=== PATIENT | female | born 1955 | race Caucasian/White ===

== ENCOUNTER → 2017-05-04 | Outpatient (CLI) | payer BC ==
--- NOTE | 2017-05-08 11:06 | MM ---
Reason for exam: screening (asymptomatic). Last mammogram was performed 1 year ago. History: Patient is postmenopausal. Benign stereotactic core biopsy of the left breast, June 28, 2000. Core biopsy of the left breast. Took hormonal contraceptives for 5 years beginning at age 20. Took estrogen for 1 month beginning at age 47. Took progesterone for 1 month beginning at age 47. Physical Findings: A clinical breast exam by your physician is recommended on an annual basis and results should be correlated with mammographic findings. MG 3D Screening Mammo W/Cad Bilateral CC and MLO view(s) were taken. Prior study comparison: May 03, 2016, bilateral MG 3d screening mammo w/cad. March 30, 2015, bilateral MG screening mammo w CAD. March 18, 2014, bilateral MG screening mammo w CAD. The breast tissue is extremely dense which could obscure a lesion on mammography. Finding: There is a 9 mm obscured round mass in the upper outer middle quadrant, posterior position of the left breast. New finding since May 03, 2016, March 30, 2015, and March 18, 2014. ASSESSMENT: Incomplete: need additional imaging evaluation, BI-RAD 0 RECOMMENDATION: Special view mammogram and ultrasound of the left breast. [facility] will attempt to contact patient to return for supplemental views and ultrasound.
== END ==
LOC: RADMAMWWP 10:07
PROVIDERS: ATTEND Obstetrics & Gynecology
DX: Z12.31 Encounter for screening mammogram for malignant neoplasm of breast (principal)
CPT/HCPCS: 77063; G0202

== ENCOUNTER → 2017-05-16 | Outpatient (CLI) | payer BC ==
--- NOTE | 2017-05-16 14:53 | MM ---
Reason for exam: additional evaluation requested from abnormal screening. Last mammogram was performed less than 1 month ago. History: Patient is postmenopausal and history of other cancer. Benign stereotactic core biopsy of the left breast, June 28, 2000. Core biopsy of the left breast. Took hormonal contraceptives for 5 years beginning at age 20. Took estrogen for 1 month beginning at age 47. Took progesterone for 1 month beginning at age 47. Physical Findings: Nurse did not find any significant physical abnormalities on exam. MG 3D Work Up W/Cad LT CC and MLO view(s) were taken of the left breast. Prior study comparison: May 04, 2017, bilateral MG 3d screening mammo w/cad. May 03, 2016, bilateral MG 3d screening mammo w/cad. The breast tissue is heterogeneously dense. This may lower the sensitivity of mammography. The previously seen focal asymmetry appears as fibroglandular tissue, however, precautionary ultrasound was performed. These results were verbally communicated with the patient and result sheet given to the patient on 05/16/17. ASSESSMENT: Incomplete: need additional imaging evaluation, BI-RAD 0 RECOMMENDATION: Ultrasound of the left breast. (upper inner and upper outer quadrant)
--- NOTE | 2017-05-16 14:55 | USB ---
Reason for exam: additional evaluation requested from abnormal screening. History: Patient is postmenopausal and history of other cancer. Benign stereotactic core biopsy of the left breast, June 28, 2000. Core biopsy of the left breast. Took hormonal contraceptives for 5 years beginning at age 20. Took estrogen for 1 month beginning at age 47. Took progesterone for 1 month beginning at age 47. US Breast Workup Limited LT Left breast ultrasound demonstrates no cystic or solid lesion seen. Dense breast tissue corresponds to the mammographic focal asymmetry. These results were verbally communicated with the patient and result sheet given to the patient on 05/16/17. ASSESSMENT: Probably benign, BI-RAD 3 RECOMMENDATION: Follow-up diagnostic mammogram of the left breast in 6 months.
== END | disposition home or self-care (01) ==
LOC: RADMAMWWP 13:29
PROVIDERS: ATTEND Obstetrics & Gynecology
DX: R92.8 Other abnormal and inconclusive findings on diagnostic imaging of breast (principal)
CPT/HCPCS: 76642; G0206; G0279

== ENCOUNTER → 2017-06-29 | Outpatient (CLI) | payer BC ==
--- NOTE | 2017-06-29 17:17 | US ---
EXAMINATION TYPE: US abdomen complete DATE OF EXAM: 06/29/2017 COMPARISON: NONE CLINICAL HISTORY: 61-year-old female R10.11 Intractable right upper quad pain. RUQ pain x years, anjel en worse in the past 6 months, history of cholecystectomy TECHNIQUE: Multiple sonographic images of the abdomen are obtained. FINDINGS: Liver Length: 15.9 cm Gallbladder: surgically absent CBD: 0.3 cm Spleen: 10.2 cm Right Kidney: 9.9 x 4.2 x 4.9 cm Left Kidney: 9.8 x 4.1 x 4.0 cm Pancreas: wnl Liver: wnl Gallbladder: surgically absent Evidence for sonographic [place]'s sign: no CBD: wnl Spleen: visualized portions wnl, limited by rib shadowing and overlying bowel gas Right Kidney: No hydronephrosis Left Kidney: No hydronephrosis, inferior pole limited by overlying bowel gas Upper IVC: wnl Abd Aorta: wnl IMPRESSION: Status post cholecystectomy. Limited visualization of portions of the left kidney and spleen. Otherwi se, unremarkable sonographic examination of the abdomen.
== END | disposition home or self-care (01) ==
LOC: RADUSWWP 12:33
PROVIDERS: ATTEND Psychiatry & Neurology Neurology
DX: R10.11 Right upper quadrant pain (principal); Z90.49 Acquired absence of other specified parts of digestive tract
CPT/HCPCS: 76700

== ENCOUNTER → 2017-11-01 | Outpatient (CLI) | payer BC ==
--- NOTE | 2017-11-02 07:46 | MM ---
Reason for exam: follow-up at short interval from prior study. Last mammogram was performed 6 months ago. History: Patient is postmenopausal and history of other cancer. Benign stereotactic core biopsy of the left breast, June 28, 2000. Core biopsy of the left breast. Took hormonal contraceptives for 5 years beginning at age 20. Took estrogen for 1 month beginning at age 47. Took progesterone for 1 month beginning at age 47. Physical Findings: Nurse did not find any significant physical abnormalities on exam. MG 3D Diag Mammo W/Cad LT CC and MLO view(s) were taken of the left breast. Prior study comparison: May 16, 2017, left breast MG 3d work up w/cad LT. May 04, 2017, bilateral MG 3d screening mammo w/cad. The breast tissue is heterogeneously dense. This may lower the sensitivity of mammography. Previous mammotome biopsy in the left breast. There is no discrete abnormality. These results were verbally communicated with the patient and result sheet given to the patient on 11/01/17. ASSESSMENT: Benign, BI-RAD 2 RECOMMENDATION: Return to routine screening mammogram schedule for both breasts. Back on schedule.
== END | disposition home or self-care (01) ==
LOC: RADMAMWWP 13:26
PROVIDERS: ATTEND Obstetrics & Gynecology
DX: R92.8 Other abnormal and inconclusive findings on diagnostic imaging of breast (principal)
CPT/HCPCS: 77065; G0279

== ENCOUNTER → 2018-05-10 | Outpatient (CLI) | payer BC ==
--- NOTE | 2018-05-14 08:51 | MM ---
Reason for exam: screening (asymptomatic). Last mammogram was performed 6 months ago. History: Patient is postmenopausal and history of other cancer. Benign stereotactic core biopsy of the left breast, June 28, 2000. Core biopsy of the left breast. Took hormonal contraceptives for 5 years beginning at age 20. Took estrogen for 1 month beginning at age 47. Took progesterone for 1 month beginning at age 47. Physical Findings: A clinical breast exam by your physician is recommended on an annual basis and results should be correlated with mammographic findings. MG 3D Screening Mammo W/Cad Bilateral CC and MLO view(s) were taken. Prior study comparison: November 01, 2017, left breast MG 3d diag mammo w/cad LT. May 16, 2017, left breast MG 3d work up w/cad LT. May 04, 2017, bilateral MG 3d screening mammo w/cad. May 03, 2016, bilateral MG 3d screening mammo w/cad. The breast tissue is extremely dense which could obscure a lesion on mammography. No significant changes when compared with prior studies. ASSESSMENT: Negative, BI-RAD 1 RECOMMENDATION: Routine screening mammogram of both breasts in 1 year.
== END | disposition home or self-care (01) ==
LOC: RADMAMWWP 16:48
PROVIDERS: ATTEND Obstetrics & Gynecology
DX: Z12.31 Encounter for screening mammogram for malignant neoplasm of breast (principal)
CPT/HCPCS: 77063; 77067

== ENCOUNTER → 2018-08-02 | Outpatient (CLI) | payer BC ==
--- NOTE | 2018-08-02 14:53 | XR ---
EXAMINATION TYPE: XR Hip Bilateral Complete DATE OF EXAM: 08/02/2018 CLINICAL HISTORY: pain TECHNIQUE: AP and frogleg views of the bilateral hips are obtained. COMPARISON: None. FINDINGS: There is no acute fracture/dislocation evident. The joint space appears within normal li mits. The overlying soft tissue appears unremarkable. IMPRESSION: 1. There is no acute fracture or dislocation. ICD 10 NO FRACTURE, INITIAL EVALUATION
--- NOTE | 2018-08-02 14:55 | XR ---
EXAMINATION TYPE: XR sacroiliac joint comp BILAT DATE OF EXAM: 08/02/2018 COMPARISON: NONE HISTORY: Bilateral pain TECHNIQUE: 4 views of the sacroiliac joints are submitted. FINDINGS: The sacroiliac joints demonstrate normal appearance bilaterally without evidence for sclero sis or abnormal widening. No bony destructive process seen. Sacrum is intact. IMPRESSION: Negative
== END ==
LOC: RADXRMAIN 14:20
PROVIDERS: ATTEND Psychiatry & Neurology Neurology
DX: M25.552 Pain in left hip (principal); M25.551 Pain in right hip
CPT/HCPCS: 72202; 73521

== ENCOUNTER → 2018-10-18 | Outpatient (CLI) | payer BC ==
--- NOTE | 2018-10-18 17:05 | FL ---
EXAMINATION: Cervical and Thoracic Esophagram DATE OF EXAM: 10/18/2018 CLINICAL INDICATION: 62-year-old female gastroesophageal reflux disease, sensation of food getting st uck mid chest level and frequent throat clearing. COMPARISON: None Total Fluoroscopy Time: 1.12 minutes. Total images: 20. FINDINGS: The swallowing mechanism is normal. There is increased density noted involving the region of the larynx and hypopharynx suspected to repr esent cartilaginous calcification. No abnormal mass effect is identified onto the contrast column dur ing swallowing. Otherwise, the hypopharyngeal anatomy is preserved. The cervical and thoracic portions have a normal course and caliber and normal motility. The mucosa is normal and no persistent filling defect is encountered. No hiatal hernia is present. No gastroesophageal reflux is identified. IMPRESSION: 1. Increased density in the region of the larynx and hypopharynx suspected to represent cartilaginous calcification. As a precautionary measure, consider direct visualization to exclude a mucosal lesion . On this exam, no abnormal mass effect onto the contrast column during swallowing is encountered. 2. Otherwise, unremarkable esophagram.
== END | disposition home or self-care (01) ==
LOC: RADFLWHC 10:00
PROVIDERS: ATTEND Family Medicine
DX: J38.7 Other diseases of larynx (principal); J39.2 Other diseases of pharynx
CPT/HCPCS: 74220

== ENCOUNTER → 2019-06-17 | Outpatient (CLI) | payer BC ==
--- NOTE | 2019-06-18 11:23 | MM ---
Reason for exam: screening (asymptomatic). Last mammogram was performed 1 year and 1 month ago. History: Patient is postmenopausal and history of other cancer. Benign stereotactic core biopsy of the left breast, June 28, 2000. Core biopsy of the left breast. Took hormonal contraceptives for 5 years beginning at age 20. Took estrogen for 1 month beginning at age 47. Took progesterone for 1 month beginning at age 47. Physical Findings: A clinical breast exam by your physician is recommended on an annual basis and results should be correlated with mammographic findings. MG 3D Screening Mammo W/Cad Bilateral CC and MLO view(s) were taken. Prior study comparison: May 10, 2018, bilateral MG 3d screening mammo w/cad. November 01, 2017, left breast MG 3d diag mammo w/cad LT. The breast tissue is extremely dense which could obscure a lesion on mammography. Previous mammotome biopsy in the right breast. There is no discrete abnormality. No significant changes when compared with prior studies. ASSESSMENT: Negative, BI-RAD 1 RECOMMENDATION: Routine screening mammogram of both breasts in 1 year.
== END | disposition home or self-care (01) ==
LOC: RADMAMWWP 13:04
PROVIDERS: ATTEND Obstetrics & Gynecology
DX: Z12.31 Encounter for screening mammogram for malignant neoplasm of breast (principal)
CPT/HCPCS: 77063; 77067

== ENCOUNTER → 2020-09-01 | Outpatient (CLI) | payer BC ==
--- NOTE | 2020-09-02 12:07 | MM ---
Reason for exam: screening (asymptomatic). Last mammogram was performed 1 year and 2 months ago. History: Patient is postmenopausal and history of other cancer. Benign stereotactic core biopsy of the left breast, June 28, 2000. Core biopsy of the left breast. Took hormonal contraceptives for 5 years beginning at age 20. Took estrogen for 1 month beginning at age 47. Took progesterone for 1 month beginning at age 47. Physical Findings: A clinical breast exam by your physician is recommended on an annual basis and results should be correlated with mammographic findings. MG 3D Screening Mammo W/Cad Bilateral CC and MLO view(s) were taken. Prior study comparison: June 17, 2019, bilateral MG 3d screening mammo w/cad. May 10, 2018, bilateral MG 3d screening mammo w/cad. The breast tissue is extremely dense which could obscure a lesion on mammography. There is no discrete abnormality. No significant changes when compared with prior studies. ASSESSMENT: Negative, BI-RAD 1 RECOMMENDATION: Routine screening mammogram of both breasts in 1 year.
== END | disposition home or self-care (01) ==
LOC: RADMAMWWP 08:30
PROVIDERS: ATTEND Obstetrics & Gynecology
DX: Z12.31 Encounter for screening mammogram for malignant neoplasm of breast (principal)
CPT/HCPCS: 77063; 77067

== ENCOUNTER → 2021-06-14 | Outpatient (CLI) | payer BC ==
[2021-06-14 21:13] LABS: ALT 18 U/L (8-44); AST 26 U/L (13-35); African American GFR (CKD) 100.5 (60.0-200.0); Albumin 4.4 g/dL (3.8-4.9); Albumin/Globulin Ratio 2.46 (1.60-3.17); Alkaline Phosphatase 53 U/L (41-126); Blood Urea Nitrogen 15.3 mg/dL (9.0-27.0); Calcium 9.4 mg/dL (8.7-10.3); Carbon Dioxide 26.9 mmol/L (21.6-31.8); Chloride 103 mmol/L (96-109); Chol/HDL Ratio 2.32 Ratio; Globulin 1.8 g/dL (1.6-3.3); Glucose 86 mg/dL (70-110); LDL Cholesterol,Calculated 79.2 mg/dL (0.0-131.0); Non-African American GFR(CKD) 86.8 (60.0-200.0); Potassium 4.5 mmol/L (3.5-5.5); Sodium 143 mmol/L (135-145); Total Protein 6.2 g/dL (6.2-8.2); VLDL Calculation 10.02 mg/dL (5.00-40.00)
== END | disposition home or self-care (01) ==
LOC: LABWHC1 11:07
PROVIDERS: ATTEND Internal Medicine Clinical Cardiac Electrophysiology
DX: I48.0 Paroxysmal atrial fibrillation (principal); E78.5 Hyperlipidemia, unspecified; I49.3 Ventricular premature depolarization
CPT/HCPCS: 36415; 80053; 80061; 84443

== ENCOUNTER → 2021-09-17 | Outpatient (CLI) | payer BC ==
--- NOTE | 2021-09-21 08:55 | MM ---
Reason for exam: screening (asymptomatic). Last mammogram was performed 1 year and 1 month ago. History: Patient is postmenopausal and history of other cancer. Benign stereotactic core biopsy of the left breast, June 28, 2000. Core biopsy of the left breast. Took hormonal contraceptives for 5 years beginning at age 20. Took estrogen for 1 month beginning at age 47. Took progesterone for 1 month beginning at age 47. Physical Findings: A clinical breast exam by your physician is recommended on an annual basis and results should be correlated with mammographic findings. MG 3D Screening Mammo W/Cad Bilateral CC and MLO view(s) were taken. Prior study comparison: September 01, 2020, bilateral MG 3d screening mammo w/cad. June 17, 2019, bilateral MG 3d screening mammo w/cad. The breast tissue is extremely dense which could obscure a lesion on mammography. Previous mammotome biopsy in the right breast. No significant changes when compared with prior studies. ASSESSMENT: Benign, BI-RAD 2 RECOMMENDATION: Routine screening mammogram of both breasts in 1 year.
== END | disposition home or self-care (01) ==
LOC: RADMAMWWP 09:22
PROVIDERS: ATTEND Obstetrics & Gynecology
DX: Z12.31 Encounter for screening mammogram for malignant neoplasm of breast (principal); Z78.0 Asymptomatic menopausal state
CPT/HCPCS: 77063; 77067

== ENCOUNTER → 2022-08-31 | Outpatient (CLI) | payer BC, MEDICARE ==
[2022-08-31 14:28] LABS: HCT 41.7 % (37.2-46.3); HGB 13.5 g/dL (12.0-15.0); MCHC 32.4 g/dL (32.0-37.0); MCV 95.6 fL (80.0-97.0); Mean Platelet Volume 10.2 fL (9.5-12.2); NRBC Per 100 WBC 0 /100 WBCS (0.0-0.0); Platelet Count 189 X 10*3/uL (140-440); RBC 4.36 X 10*6/uL (4.10-5.20); RDW 12.3 % (11.5-14.5)
[2022-08-31 15:22] LABS: ALT 23 U/L (8-44); AST 29 U/L (13-35); Albumin 4.4 g/dL (3.8-4.9); Albumin/Globulin Ratio 2.52 (1.60-3.17); Alkaline Phosphatase 49 U/L (41-126); Blood Urea Nitrogen 14.9 mg/dL (9.0-27.0); Calcium 9.4 mg/dL (8.7-10.3); Carbon Dioxide 29.9 mmol/L (20.0-27.5); Chloride 103 mmol/L (96-109); Globulin 1.8 g/dL (1.6-3.3); Glucose 91 mg/dL (70-110); Non-African American GFR(CKD) 80.3 (60.0-200.0); Potassium 4.4 mmol/L (3.5-5.5); Sodium 142 mmol/L (135-145); Total Protein 6.2 g/dL (6.2-8.2)
== END | disposition home or self-care (01) ==
LOC: LABWHC1 09:41
PROVIDERS: ATTEND Internal Medicine Clinical Cardiac Electrophysiology
DX: I48.0 Paroxysmal atrial fibrillation (principal); I34.1 Nonrheumatic mitral (valve) prolapse
CPT/HCPCS: 36415; 80053; 84443; 85027

== ENCOUNTER → 2023-10-09 | Outpatient (CLI) | payer MEDICARE, BC ==
--- NOTE | 2023-10-11 07:44 | MM ---
Reason for Exam: Screening (asymptomatic). Last screening mammogram was performed 12 month(s) ago. Patient History: Menarche at age 16. First Full-Term at age 27. Postmenopausal. Other cancer. Estrogen for 1 month from age 47 until age 47. Progesterone for 1 month from age 47 until age 47. Hormonal Contraceptives for 5 years from age 20 until age 25. Core Biopsy on the Left side. 06/28/2000, Benign Stereotactic Core Biopsy on the left side. Risk Values: Ml 5 year model risk: 2.5%. NCI Lifetime model risk: 9.0%. Prior Study Comparison: 09/01/2020 Bilateral Screening Mammogram, [facility]. 09/17/2021 Bilateral Screening Mammogram, [facility]. 09/29/2022 Bilateral MG 3D screening mammo w/cad, [facility]. Tissue Density: The breasts are extremely dense, which lowers the sensitivity of mammography. Findings: Analyzed By CAD. Microclip left breast from prior biopsy. There is no suspicious group of microcalcifications or new suspicious mass in either breast. Overall Assessment: Benign, BI-RAD 2 Management: Screening Mammogram of both breasts in 1 year. Given the patient's extremely dense breast tissues, consideration can be given to supplementary screening with breast ultrasound or breast MRI. Patient should continue monthly self-breast exams. A clinical breast exam by your physician is recommended on an annual basis. This exam should not preclude additional follow-up of suspicious palpable abnormalities. Note on Ml scores and lifetime risk: 1. A Ml score greater than 3% is considered moderate risk. If this is the case, consider specialist referral to assess eligibility for a risk reducing agent. 2. If overall lifetime risk for the development of breast cancer is 20% or higher, the patient may qualify for future screening with alternating mammogram and breast MRI. Electronically signed and approved by: Jazzmine Jamil M.D. Radiologist
== END | disposition home or self-care (01) ==
LOC: RADMAMWWP 08:53
PROVIDERS: ATTEND Pediatrics
DX: Z12.31 Encounter for screening mammogram for malignant neoplasm of breast (principal); Z78.0 Asymptomatic menopausal state
CPT/HCPCS: 77063; 77067

== ENCOUNTER → 2024-05-27 | Outpatient (CLI) | payer MEDICARE, BC ==
--- NOTE | 2024-05-27 17:35 | BD ---
EXAMINATION TYPE: Axial Bone Density DATE OF EXAM: 05/27/2024 CLINICAL HISTORY: 68 years old Female. ICD-10 CODE: Z78.0 MENOPAUSAL Height: 63.5 Weight: 114 FRAX RISK QUESTIONS: Secondary Osteoporosis: RISK FACTORS HISTORY OF: MEDICATIONS: Thyroid Medications: Which medication: Synthroid How Lon+ years EXAM MEASUREMENTS: Bone mineral densitometry was performed using the [employer]. Bone mineral density as measured about the Lumbar spine is: ----- L1-L4(G/cm2): 1.117 T Score Values are as follows: ----- L1: -1.6 ----- L2: -0.9 ----- L3: -0.3 ----- L4: 0.4 ----- L1-L4: -0.5 Z Score Values are as follows: ----- L1: 0.4 ----- L2: 1.1 ----- L3: 1.8 ----- L4: 2.4 ----- L1-L4: 1.5 Bone mineral density has: Decreased -12.7% since study of: 06-04-02 Bone mineral density about the R hip (g/cm2): 0.831 Bone mineral density about the L hip (g/cm2): 0.837 T Score values are as follows: -----R Neck: -1.9 -----L Neck: -1.7 -----R Total: -1.4 -----L Total: -1.4 Z Score values are as follows: -----R Neck: 0.0 -----L Neck: 0.1 -----R Total: 0.2 -----L Total: 0.3 Bone mineral density has: Decreased -16.3% since study of: FRAX%s: The graph provided illustrates a 9.6% chance for a major osteoporotic fx and a 1.7% chance fo r the hips probability for fx in 10 years time. IMPRESSION: Osteopenia (T Score between -2.5 and -1). There is slightly increased risk of fracture and the patient may be considered for treatment. Re-Screen 2-5 years. NOTE: T-SCORE=SD OF THE YOUNG ADULT MEAN. [facility], , 05/27/2024 5:33 PM
== END | disposition home or self-care (01) ==
LOC: RADBDWWP 09:17
PROVIDERS: ATTEND Pediatrics
CPT/HCPCS: 77080